=== PATIENT | male | born 1960 | race African-American/Black ===

== ENCOUNTER 2016-07-27 15:54 | Observation (INO) | payer OTHER ==
[~2016-07-27] VITALS: Ht 175.3 cm; Wt 80.2 kg
[~2016-07-27 15:54] MED LIST: ALPR0.5T3 PO; ASPI81 PO; ATOR80TA PO; CLOP75 PO; CORE12.5 PO; ISOS30TA3 PO; LISI-363 PO; NITR.4 SL; PRIL20CA PO; SPIR25 PO
[2016-07-27 15:55] VITALS: BP 164/101; PULSE 81; RESP 16; TEMP 98.2; O2SAT 98
[2016-07-27] MEDS ORDERED: ASPIRIN 325 MG TAB PO ONE (16:15)
[2016-07-27] MEDS ORDERED: SODIUM CHLORIDE 0.9% FLUSH 10 ML FLUSH IVF PRN ×2 (16:15→18:00)
[2016-07-27] MEDS ORDERED: NITROGLYCERIN 0.4 MG SL 25 TABS/BTL SL ONE (16:15)
--- NOTE | 2016-07-27 16:27 | RADRPT ---
EXAM DATE/TIME: 07/27/2016 16:17 [facility] COMPARISON: CHEST SINGLE AP, November 08, 2015, 3:09. INDICATIONS : Chest pain. MEDICAL HISTORY : Hypertension. Cardiovascular disease SURGICAL HISTORY : Pacemaker. ENCOUNTER: Initial ACUITY: 1 day PAIN SCORE: 10/10 LOCATION: Bilateral chest FINDINGS: A single view of the chest demonstrates the lungs to be symmetrically aerated without evidence of mas s, infiltrate or effusion. The cardiomediastinal contours are unremarkable. Osseous structures are intact. Single lead left-sided pacing device noted. Lead terminates in the region of the right ventri juve. CONCLUSION: No acute disease. Boogie Hall Jr., MD on July 27, 2016 at 16:25 Board Certified Radiologist. This report was verified electronically.
[2016-07-27 16:29] VITALS: BP 145/87; PULSE 70; RESP 18; O2SAT 97
[2016-07-27 16:31] VITALS: BP_SYST 145; BP_SYST 146; BP_DIAS 85; BP_DIAS 87; PULSE 72; RESP 18; RESP 20; O2SAT 99
--- NOTE | 2016-07-27 16:41 | PD ---
HPI Chief Complaint: Chest Pain Time Seen by Provider: 16:36 Travel History International Travel<30 days: No Contact w/Intl Traveler<30days: No Traveled to known affect area: No History of Present Illness HPI 56-year-old male that presents to the ED for evaluation of chest pain that comes and goes since this morning. Per patient he has a history of STEMI as well as stenting of the heart about a year ago. Patient also states that he had a history of cardiac arrest and was brought back to life. Patient reports that since this morning she woke up with some chest pain which she states comes and goes. Per patient starts as a small ache and then becomes more severe and then goes away. Per patient he feels somewhat like a burning sensation. He does tell me that he went on a casino bar and he did drink some alcohol more than his usual but denies any smoking. He denies any headache but does state feeling somewhat dizzy and lightheaded. He was seen about 3 times last year and had a STEMI and to non-STEMI during that time. Per patient she follows with Dr. Carbone. Per patient the discomfort gets to be 6 out of 10. Describes it more like a burning than a pressure or actual pain. Per patient he has no abdominal pain. No nausea or vomiting. No urinary or bowel movement issues. No fevers chills or sweats. No recent travel. He does have a history of hypertension, family history of heart disease, and takes anticoagulation. He also has a defibrillator but per patient the body was taken off because his doctor recommended that he did not need it anymore. PFSH Past Medical History Hx Anticoagulant Therapy: Yes (ASA) Asthma: No Autoimmune Disease: No Blood Disorders: No Heart Rhythm Problems: No Cancer: No Cardiac Catheterization: Yes Cardiovascular Problems: Yes (MIx2, STENTx1, PACEMAKER) High Cholesterol: Yes Chest Pain: Yes Congestive Heart Failure: No COPD: No Diabetes: No Diminished Hearing: No Endocrine: No Gastrointestinal Disorders: Yes (CUST COLON) Gout: Yes Genitourinary: No Hepatitis: No Heparin Induced Thrombocytopen: No Hypertension: Yes Immune Disorder: No Musculoskeletal: Yes Neurologic: No Psychiatric: No Respiratory: Yes Immunizations Current: Yes Myocardial Infarction: Yes (2011;2015) Sleep Apnea: No Thyroid Disease: No PNEUMOCCOCAL Vaccine (Year): 2 Past Surgical History Abdominal Surgery: Yes (Cyst removed ) AICD: Yes (July 2011) Arteriovenous Shunt: No Cardiac Surgery: Yes (AICD placed three years ago; STENT x1) Coronary Artery Bypass Graft: No Ear Surgery: No Endocrine Surgery: No Eye Surgery: No Genitourinary Surgery: No Gynecologic Surgery: No Insulin Pump: No Joint Replacement: No Neurologic Surgery: No Oral Surgery: No Pacemaker: No Thoracic Surgery: No Other Surgery: Yes (5 knee surguries, stomach cyst removed, wrist surgery) Family History Family Myocardial Infarction: No Social History Alcohol Use: Yes (TWO SHOTS/DAY) Tobacco Use: No Substance Use: No Allergies-Medications (Allergen,Severity, Reaction): Coded Allergies: Septra (Verified Allergy, Severe, "FEELS LIKE MY WHOLE BODY IS ON FIRE", ) Sulfa (Verified Allergy, Severe, "FEELS LIKE MY WHOLE BODY IS ON FIRE", ) Reported Meds & Prescriptions Reported Meds & Active Scripts Active Isosorbide Mononitrate Er (Isosorbide Mononitrate) 30 Mg Tab 60 Mg PO DAILY Plavix (Clopidogrel Bisulfate) 75 Mg Tab 75 Mg PO DAILY Aspirin Low Strength (Aspirin) 81 Mg Chw 81 Mg PO DAILY Prilosec 20 mg (Omeprazole) 20 Mg Cap 20 Mg PO DAILY Nitroglycerin 0.4 Mg Subl 0.4 Mg SL DIRECTED PRN take one tablet sublingually every 5 minutes as needed for up to 3 doses max Reported Atorvastatin 80 mg (Atorvastatin Calcium) 80 Mg Tab 80 Mg PO DAILY Lisinopril 20 mg (Lisinopril) 20 Mg Tab 1 Tab PO BID Alprazolam 0.5 Mg Tab 0.5 Mg PO BID PRN Aldactone 25 mg (Spironolactone) 25 Mg Tab 12.5 Mg PO DAILY Hold for SBP below 120 Coreg (Carvedilol) 12.5 Mg Tab 25 Mg PO BID Review of Systems General / Constitutional: No: Fever, Chills, Weight Gain, Weight Loss, Other Eyes: No: Diploplia, Blurred Vision, Photophobia, Drainage, Redness, Foreign Body Sensation, Pain, Tearing, Blind Spots, Visual changes, Blindness, Other HENT: No: Headaches, Vertigo, Lightheadedness, Sore Throat, Rhinitis, Rhinorrhea, Congestion, Nosebleed, Neck Stiffness, Neck Pain, Masses, Gingival Bleeding, Dental Difficulties, Ear Discharge, Earache, Other Cardiovascular: Positive: Chest Pain or Discomfort, Diaphoresis, No: Palpitations, Irregular Rhythm, Tachycardia, Syncope, Dyspnea on exertion, Varicosities, Edema, Cyanosis, Varicosities, Phlebitis, Claudication, Other Respiratory: Positive: Shortness of Breath, No: Cough, Wheezing, Sneezing, Orthopnea, Hemoptysis, Stridor, Night Sweats, Pleuritic Pain, Other Gastrointestinal: No: Nausea, Vomiting, Diarrhea, Abdominal Pain, Hematemesis, Hematochezia, Constipation, Changes in Bowel Habits, Indigestion, Dysphagia, Loss of Appetite, Other Genitourinary: No: Urgency, Frequency, Dysuria, Nocturia, Hematuria, Decreased Urinary Output, Oliguria, Hesitancy, Dribbling, Incontinence, Pelvic Pain, Flank Pain, Dyspareunia, Discharge, Dysmenorrhea, Menorrhagia, Metorrhagia, Vaginal Bleeding, Other Musculoskeletal: No: Myalgias, Arthralgias, Limited ROM, Weakness, Cramping, Edema, Pain, Atrophy, Other Skin: No Rash, No Itching, No Dryness, No Lumps, No Hives, No Change in Pigmentation, No Change in nails, No Alopecia, No Lesions, No Breast Lumps, No Breast Tenderness, No Breast Swelling, No Other Neurologic: No: Weakness, Dizziness, Syncope, Focal Abnormalities, Coordination Problem, Tremor, Ataxia, Headache, Change in Mentation, Slurred Speech, Paresthesia, Incontinence, Seizures, Sensory Disturbance, Other Psychiatric: No: Anxiety, Depression, Suicidal Ideations, Disorder of Thought, Mood Disorder, Substance Abuse, Homicidal Ideation, Other Endocrine: No: Heat Intolerance, Cold Intolerance, Polyuria, Polydipsia, Other Hematologic/Lymphatic: No: Easy Bruising, Lymph Node Enlargement, Other Physical Exam Narrative GENERAL: SKIN: Warm and dry. HEAD: Atraumatic. Normocephalic. EYES: Pupils equal and round. No scleral icterus. No injection or drainage. ENT: No nasal bleeding or discharge. Mucous membranes pink and moist. Tongue is midline. No uvula deviation. NECK: Trachea midline. No JVD. CARDIOVASCULAR: Regular rate and rhythm. No obvious murmurs, S3, S4. Chest pain is not reproducible with touch. RESPIRATORY: No accessory muscle use. Clear to auscultation. Breath sounds equal bilaterally. GASTROINTESTINAL: Abdomen soft, non-tender, nondistended. Hepatic and splenic margins not palpable. MUSCULOSKELETAL: Extremities without clubbing, cyanosis, or edema. No obvious deformities. Full range of motion of the upper and lower extremities bilaterally. 2+ pulses bilaterally. NEUROLOGICAL: Awake and alert. No obvious cranial nerve deficits. Motor grossly within normal limits. Five out of 5 muscle strength in the arms and legs. Normal speech. PSYCHIATRIC: Appropriate mood and affect; insight and judgment normal. Data Data Last Documented VS Vital Signs Date Time Temp Pulse Resp B/P Pulse Ox O2 Delivery O2 Flow Rate FiO2 07/27/16 17:48 18 07/27/16 16:31 72 99 Room Air 07/27/16 16:31 145/87 146/85 07/27/16 15:55 98.2 Orders Electrocardiogram (07/27/16 16:08) Basic Metabolic Panel (Bmp) (07/27/16 16:08) B-Type Natriuretic Peptide (07/27/16 16:08) Ckmb (Isoenzyme) Profile (07/27/16 16:08) Complete Blood Count With Diff (07/27/16 16:08) Magnesium (Mg) (07/27/16 16:08) Prothrombin Time / Inr (Pt) (07/27/16 16:08) Act Partial Throm Time (Ptt) (07/27/16 16:08) Troponin I (07/27/16 16:08) Lipase (07/27/16 16:08) Chest, Single Ap (07/27/16 16:08) Ecg Monitoring (07/27/16 16:08) Bilateral Bp Monitoring (07/27/16 16:08) Iv Access Insert/Monitor (07/27/16 16:08) Oximetry (07/27/16 16:08) Oxygen Administration (07/27/16 16:08) Aspirin (Aspirin) (07/27/16 16:15) Sodium Chloride 0.9% Flush (Ns Flush) (07/27/16 16:15) Nitroglycerin Sl (Nitrostat Sl) (07/27/16 16:15) CKMB (07/27/16 16:30) CKMB% (07/27/16 16:30) Admit Order (Ed Use Only) (07/27/16 17:51) Labs Laboratory Tests Test 07/27/16 16:30 White Blood Count 7.0 TH/MM3 Red Blood Count 3.67 MIL/MM3 Hemoglobin 12.6 GM/DL Hematocrit 36.6 % Mean Corpuscular Volume 99.9 FL Mean Corpuscular Hemoglobin 34.4 PG Mean Corpuscular Hemoglobin 34.5 % Concent Red Cell Distribution Width 14.9 % Platelet Count 214 TH/MM3 Mean Platelet Volume 9.5 FL Neutrophils (%) (Auto) 38.8 % Lymphocytes (%) (Auto) 46.5 % Monocytes (%) (Auto) 7.4 % Eosinophils (%) (Auto) 6.4 % Basophils (%) (Auto) 0.9 % Neutrophils # (Auto) 2.7 TH/MM3 Lymphocytes # (Auto) 3.3 TH/MM3 Monocytes # (Auto) 0.5 TH/MM3 Eosinophils # (Auto) 0.4 TH/MM3 Basophils # (Auto) 0.1 TH/MM3 CBC Comment DIFF FINAL Differential Comment Prothrombin Time 9.7 SEC Prothromb Time International 0.9 RATIO Ratio Activated Partial 27.3 SEC Thromboplast Time Sodium Level 140 MEQ/L Potassium Level 3.6 MEQ/L Chloride Level 106 MEQ/L Carbon Dioxide Level 26.2 MEQ/L Anion Gap 8 MEQ/L Blood Urea Nitrogen 17 MG/DL Creatinine 1.12 MG/DL Estimat Glomerular Filtration 82 ML/MIN Rate Random Glucose 99 MG/DL Calcium Level 8.8 MG/DL Magnesium Level 1.9 MG/DL Total Creatine Kinase 224 U/L Creatine Kinase MB 1.1 NG/ML Troponin I 0.02 NG/ML B-Type Natriuretic Peptide 13 PG/ML Lipase 201 U/L MDM Medical Decision Making Medical Screen Exam Complete: Yes Emergency Medical Condition: Yes Medical Record Reviewed: Yes Interpretation(s) CBC & BMP Diagram 07/27/16 16:30 EKG shows sinus rhythm with no sign of acute ischemia or arrhythmia read by me and attending. Troponin and CK-MB negative. Lipase negative Differential Diagnosis Chest pain versus a typical chest pain versus an STEMI versus ACS versus GERD versus cardiomyopathy Narrative Course 56-year-old male that presents to the ED for evaluation of chest pain. Patient was properly examined and was found to have signs and symptoms consistent appears to be chest pain." You're this time. Patient states that the symptoms are similar to when he had the stent put in place and he does have a significant history of heart disease. Recommendation is for cardiac workup. Patient is agreeable with this. Patient was given nitroglycerin and aspirin. Labs and imaging showed no sign of acute at this time. Patient did get resolution of symptoms with nitroglycerin and aspirin. Case discussed with my attending who recommends speaking with patient's business systems technician. I spoke with Dr. Carbone over the phone who recommends admission to chest pain center for chest pain workup. Patient was told this and is agreeable with plan. Patient was admitted to the chest pain center. Orders were placed by me. Procedures EKG Prior to Arrival: No Diagnosis Primary Impression: Chest pain in adult Admitting Information Admitting Physician Requests: Observation He Gill Jul 27, 2016 16:41
[2016-07-27 17:11] LABS: AUTOMATED NEUTROPHIL # 2.7 TH/MM3 (1.8-7.7); BASOPHIL # 0.1 TH/MM3 (0-0.2); BASOPHIL % 0.9 % (0.0-2.0); EOSINOPHIL # 0.4 TH/MM3 (0-0.4); EOSINOPHIL % 6.4 % (0.0-4.0); HEMATOCRIT 36.6 % (39.0-51.0); HEMO FLAGS DIFF FINAL; LYMPH % 46.5 % (9.0-44.0); LYMPHOCYTE # 3.3 TH/MM3 (1.0-4.8); MEAN CELL VOLUME 99.9 FL (80.0-100.0); MEAN CORPUSCULAR HEMOGLOBIN 34.4 PG (27.0-34.0); MEAN CORPUSCULAR HGB CONC 34.5 % (32.0-36.0); MONO % 7.4 % (0.0-8.0); NEUT % 38.8 % (16.0-70.0); PLATELET COUNT 214 TH/MM3 (150-450); RED BLOOD COUNT 3.67 MIL/MM3 (4.50-5.90); RED CELL DISTRIBUTION WIDTH 14.9 % (11.6-17.2)
[2016-07-27 17:24] LABS: APTT (PATIENT) 27.3 SEC (24.3-30.1); INTERNATIONAL NORMALIZED RATIO 0.9 RATIO; PROTHROMBIN TIME - PATIENT 9.7 SEC (9.8-11.6)
[2016-07-27 17:32] LABS: ANION GAP 8 MEQ/L (5-15); BICARBONATE 26.2 MEQ/L (21.0-32.0); BLOOD UREA NITROGEN 17 MG/DL (7-18); CHLORIDE 106 MEQ/L (98-107); GLOMERULAR FILTRATION RATE 82 ML/MIN (>89); MAGNESIUM 1.9 MG/DL (1.5-2.5); POTASSIUM 3.6 MEQ/L (3.5-5.1); SODIUM (NA) 140 MEQ/L (136-145)
[2016-07-27 17:35] LABS: CREATINE KINASE 224 U/L (39-308)
[2016-07-27 17:48] LABS: CKMB 1.1 NG/ML (0.5-3.6)
[2016-07-27] MEDS ORDERED: ACETAMINOPHEN 500 MG CPLT PO PRN (18:00)
[2016-07-27] MEDS ORDERED: ONDANSETRON HCL 4 MG/2 ML VIAL IV PRN (18:00)
[2016-07-27 18:29] VITALS: BP 142/76; PULSE 72; RESP 18; O2SAT 98
[2016-07-27 18:41] VITALS: BP 136/72
[2016-07-27] MEDS ORDERED: LISI-515 PO (19:22)
[2016-07-27] MEDS ORDERED: NITR0.4S SL (19:22)
[2016-07-27] MEDS ORDERED: ALPR.5 PO (19:22)
[2016-07-27] MEDS ORDERED: OMEP20TA PO (19:22)
[2016-07-27] MEDS ORDERED: CORE25TA PO (19:22)
[2016-07-27] MEDS ORDERED: ASPI1TAB91 PO (19:22)
[2016-07-27] MEDS ORDERED: PLAV75TA29 PO (19:22)
[2016-07-27] MEDS ORDERED: ISOS60TA PO (19:22)
[2016-07-27] MEDS ORDERED: LIPI80TA PO (19:22)
[2016-07-27] MEDS ORDERED: SPIR25TA PO (19:22)
[2016-07-27 21:33] VITALS: PULSE 76
[2016-07-28] VITALS (14 sets, daily range): BP systolic 125–155; BP diastolic 77–94; PULSE 64–86; RESP 14–20; TEMP 97.6–98.8; O2SAT 94–99
[2016-07-28 01:27] LABS: CREATINE KINASE 172 U/L (39-308)
[2016-07-28 01:39] LABS: CKMB 1.1 NG/ML (0.5-3.6)
[2016-07-28 04:01] LABS: CREATINE KINASE 188 U/L (39-308)
[2016-07-28 04:13] LABS: CKMB 3.2 NG/ML (0.5-3.6)
[2016-07-28] MEDS ORDERED: ALPRAZolam 0.5 MG TAB PO PRN (07:45)
--- NOTE | 2016-07-28 07:45 | PD.CONS ---
HPI Service CV Consult Requested By Reason for Consult chest pain Primary Care Physician Carlos Cabezas M.D. History of Present Illness Here with CAD s/p PCI FLORY LAD 10/2015, h/o cardiac arrest, HTN, nonischemic cardiomyopathy s/p ICD and hyperlipidemia admitted for chest pain. He states yesterday morning he woke with chest pain. He states it waxed and waned all day. It lasted 4 or 5 minutes at a time. It did not radiate. It was associated with shortness of breath. He states it was similar to the chest pain he has prior to his stent Review of Systems Consitutional: DENIES: Fatigue, Fever, Chills, Weight gain, Weight loss Eyes: DENIES: Amaurosis F[place], Change in vision HEENT: DENIES: Lightheadedness, Change in hearing Respiratory: DENIES: See HPI, Cough, Snoring, Shortness of breath, Wheezing, Sputum production Cardiovascular: COMPLAINS OF: See HPI Gastrointestinal: DENIES: Nausea, Vomiting, Change in bowel habits, Reflux, Bloody stools, Melena Genitourinary: DENIES: Urinary incontinence, Difficulty voiding Integumentary: DENIES: Rash Neurologic: DENIES: Tingling or numbness, Memory problems, Poor Balance, Stroke symptoms Musculoskeletal: DENIES: Joint pain, Muscle pain, Limited range of motion, Back pain Psychiatric: DENIES: Anxiety, Depression, Sleep disturbances Hematologic: DENIES: Bruising tendencies, Bleeding tendencies Endocrine: DENIES: Weight gain, Weight loss, Thyroid disease Past Family Social History Allergies: Coded Allergies: Septra (Verified Allergy, Severe, "FEELS LIKE MY WHOLE BODY IS ON FIRE", ) Sulfa (Verified Allergy, Severe, "FEELS LIKE MY WHOLE BODY IS ON FIRE", ) Past Medical History see HPI Past Surgical History bowel resection knee surgery Reported Medications Reported Meds & Active Scripts Active Reported Spironolactone 25 Mg Tab 12.5 Mg PO DAILY Omeprazole 20 Mg Tab 20 Mg PO DAILY Nitrostat SL (Nitroglycerin) 0.4 Mg Subl 0.4 Mg SL DIRECTED PRN 1 tablet under the tongue as needed for chest pain. Repeat every 5 minutes for a total of 3 DOSES or call 911 if NO relief. Lisinopril 20 Mg Tab 20 Mg PO BID Isosorbide Mononitrate ER (Isosorbide Mononitrate) 60 Mg Tab 60 Mg PO DAILY Plavix (Clopidogrel Bisulfate) 75 Mg Tab 75 Mg PO DAILY Coreg (Carvedilol) 25 Mg Tab 25 Mg PO BID Lipitor (Atorvastatin Calcium) 80 Mg Tab 80 Mg PO HS Xanax (Alprazolam) 0.5 Mg Tab 0.5 Mg PO BID PRN Aspirin Adult Low Strength (Aspirin) 81 Mg Tabdr 81 Mg PO DAILY Active Ordered Medications Current Medications Medications (Trade) Dose Ordered Sig/Aniya Route Start Time Stop Time Status Last Admin (NS Flush) 2 ml UNSCH PRN IVF 07/27/16 16:15 (NS Flush) 2 ml UNSCH PRN IVF 07/27/16 18:00 (Tylenol) 500 mg Q4H PRN PO 07/27/16 18:00 (Zofran Inj) 4 mg Q6H PRN IV 07/27/16 18:00 Family History noncontributory Social History denies smoking, occasional alcohol, denies substance abuse Physical Exam Vital Signs Vital Signs Date Time Temp Pulse Resp B/P Pulse Ox O2 Delivery O2 Flow Rate FiO2 07/28/16 05:07 78 07/28/16 04:21 97.6 72 20 155/94 98 07/28/16 00:32 97.9 80 20 126/80 99 07/28/16 00:29 99 07/27/16 21:33 76 07/27/16 18:41 74 18 136/72 99 07/27/16 18:29 72 18 142/76 98 Room Air 07/27/16 17:48 18 07/27/16 16:31 72 20 99 Room Air 07/27/16 16:31 72 18 145/87 99 Room Air 146/85 07/27/16 16:31 99 Room Air 07/27/16 16:29 70 18 145/87 97 Room Air 07/27/16 15:55 98.2 81 16 164/101 98 Physical Exam GENERAL: Well-nourished, well-developed patient in no apparent distress. NECK: No JVD. No carotid bruit. CARDIOVASCULAR: Regular rate and rhythm. S1/S2 no murmur, rub, or gallop. RESPIRATORY: No accessory muscle use. Clear to auscultation. Breath sounds equal bilaterally. GASTROINTESTINAL: Abdomen soft, non-tender, nondistended. MUSCULOSKELETAL: Extremities without clubbing, cyanosis, or edema. Laboratory Laboratory Tests Test 07/27/16 07/28/16 07/28/16 16:30 00:13 03:21 White Blood Count 7.0 Red Blood Count 3.67 Hemoglobin 12.6 Hematocrit 36.6 Mean Corpuscular Volume 99.9 Mean Corpuscular Hemoglobin 34.4 Mean Corpuscular Hemoglobin 34.5 Concent Red Cell Distribution Width 14.9 Platelet Count 214 Mean Platelet Volume 9.5 Neutrophils (%) (Auto) 38.8 Lymphocytes (%) (Auto) 46.5 Monocytes (%) (Auto) 7.4 Eosinophils (%) (Auto) 6.4 Basophils (%) (Auto) 0.9 Neutrophils # (Auto) 2.7 Lymphocytes # (Auto) 3.3 Monocytes # (Auto) 0.5 Eosinophils # (Auto) 0.4 Basophils # (Auto) 0.1 CBC Comment DIFF FINAL Differential Comment Prothrombin Time 9.7 Prothromb Time International 0.9 Ratio Activated Partial 27.3 Thromboplast Time Sodium Level 140 Potassium Level 3.6 Chloride Level 106 Carbon Dioxide Level 26.2 Anion Gap 8 Blood Urea Nitrogen 17 Creatinine 1.12 Estimat Glomerular Filtration 82 Rate Random Glucose 99 Calcium Level 8.8 Magnesium Level 1.9 Total Creatine Kinase 224 172 188 Creatine Kinase MB 1.1 1.1 3.2 Troponin I 0.02 0.04 0.26 B-Type Natriuretic Peptide 13 Lipase 201 Result Diagram: 07/27/16 1630 07/27/16 1630 Assessment and Plan Problem List: (1) Troponin level elevated (2) HTN (hypertension) (3) CAD (coronary artery disease) Assessment and Plan With his significant h/o of cardiac disease, some typical feature of angina and slight elevation in troponin we will proceed with left heart cath We restarted his home cardiac medications Jeremy Frank Jul 28, 2016 07:45
[2016-07-28] MEDS: LISINOPRIL 20 MG TAB PO SCH ×2 (08:03→20:08)
[2016-07-28] MEDS: CLOPIDOGREL 75 MG TAB PO SCH (08:04)
[2016-07-28] MEDS: SPIRONOLACTONE 25 MG TAB PO SCH (08:04)
[2016-07-28] MEDS: CARVEDILOL 12.5 MG TAB PO SCH ×2 (08:04→20:08)
[2016-07-28] MEDS: ATORVASTATIN 80 MG TAB PO SCH (08:04)
[2016-07-28] MEDS: ASPIRIN 81 MG CHEW TAB CHEW SCH (08:04)
[2016-07-28] MEDS ORDERED: HEPARIN SODIUM - SQ 10,000 UNITS/ML VIAL SQ ONE (09:45)
[2016-07-28] MEDS ORDERED: HEPARIN-NS/PF INJ 500 ML ONE (12:17)
[2016-07-28] MEDS ORDERED: MIDAZOLAM HCL 2 MG/2 ML VIAL ONE (12:30)
[2016-07-28] MEDS ORDERED: HEPARIN SODIUM - IV 10,000 UNITS/10 ML VIAL ONE (12:38)
[2016-07-28] MEDS ORDERED: LIDOCAINE 2% JELLY 30 ML TUBE TOP PRN (13:15)
[2016-07-28] MEDS ORDERED: ACETAMINOPHEN 325 MG TAB PO PRN (13:15)
[2016-07-28] MEDS ORDERED: MISC INFORMATION XX ONE (13:15)
[2016-07-28] MEDS ORDERED: ONDANSETRON HCL 4 MG/2 ML VIAL IV PRN (13:15)
[2016-07-28] MEDS ORDERED: ATROPINE SULFATE 1 MG/ML VIAL IV PRN (13:15)
[2016-07-28] MEDS ORDERED: SODIUM CHLOR 0.9% 250 ML INJ 250 ML IV PRN (13:15)
[2016-07-28] MEDS ORDERED: SODIUM CHLORIDE 0.9% FLUSH 10 ML FLUSH IV FLUSH PRN (13:15)
[2016-07-28] MEDS ORDERED: TEMAZEPAM 15 MG CAP PO PRN (13:15)
[2016-07-28] MEDS ORDERED: METOCLOPRAMIDE HCL 10 MG/2 ML VIAL IV PRN (13:15)
--- NOTE | 2016-07-28 13:29 | MA ---
cc: PALMIRA REYNOSO MD DATE 07/28/2016 PROCEDURE PERFORMED Catheterization PROCEDURE The patient was prepped and draped in the usual fashion. A 6 sheath was inserted percutaneously into the right femoral artery. Coronary angiography was done with [facility] preformed catheters. RESULTS Left main coronary was normal. The left anterior descending artery demonstrated 75-80% stenosis in its proximal portion. Just distal to the stenosis, an intraluminal stent was present which was widely patent and the remainder of the LAD demonstrates some very mild luminal irregularities, but no other significant stenoses were noted. The left circumflex artery demonstrated a 40-50% stenosis in its proximal portion. The artery then descended in the AV groove and gave off two obtuse marginal branches which were widely patent. The distal portion of the circumflex was very small. A subtotal stenosis was present in the midportion of that artery. This artery, however very small in diameter with an estimated diameter of 1 mm or less. The right coronary was anatomically nondominant and very small. No significant stenoses were seen. It was felt that the LAD lesion was likely the culprit lesion for the patient's symptoms. An XB 3.5 guide was used after heparin administration. A [place] wire was then maneuvered into the LAD and primary stenting was accomplished with a Synergy stent which was 3.5 x 12 mm with post dilatation to 14 atmospheres. This resulted in a good cosmetic result was zero residual. ARLEN-III flow was present pre and post procedure. The equipment was then withdrawn. The sheath was sutured into place. The patient left lab in good condition. CONCLUSION Successful PTCA and stenting of proximal LAD. MD BRAD Correa/[place] /1:13 PM /1:22 PM
[2016-07-28] MEDS ORDERED: IOHEXOL 350 MG/ML 100 ML BTL (for Cath Lab) OTHER ONE (13:58)
[2016-07-28] MEDS ORDERED: IOHEXOL 350 MG/ML 50 ML BTL (for Cath Lab) OTHER ONE (13:58)
--- NOTE | 2016-07-28 14:27 | EKG ---
Date Performed: 07/28/2016 Time Performed: 07:55:30 PTAGE: 56 years EKG: Sinus rhythm NORMAL ECG Since PREVIOUS TRACING , no significant change noted PREVIOUS TRACIN07/28/2016 05.11 DOCTOR: Robyn Spears Interpretating Date/Time 07/28/2016 14:25:20
--- NOTE | 2016-07-28 14:27 | EKG ---
Date Performed: 07/28/2016 Time Performed: 09:36:50 PTAGE: 56 years EKG: Sinus rhythm SEPTAL MYOCARDIAL INFARCTION ABNORMAL ECG Since PREVIOUS TRACING , no significant change noted PREVIOUS TRACIN07/28/2016 07.55 DOCTOR: Robyn Spears Interpretating Date/Time 07/28/2016 14:25:48
--- NOTE | 2016-07-28 14:28 | EKG ---
Date Performed: 07/28/2016 Time Performed: 05:11:37 PTAGE: 56 years EKG: Sinus rhythm SEPTAL MYOCARDIAL INFARCTION ABNORMAL ECG Since PREVIOUS TRACING , no significant change noted PREVIOUS TRACIN07/27/2016 22.29 DOCTOR: Robyn Spears Interpretating Date/Time 07/28/2016 14:26:10
--- NOTE | 2016-07-28 14:30 | EKG ---
Date Performed: 07/27/2016 Time Performed: 22:29:26 PTAGE: 56 years EKG: Sinus rhythm WITH SINUS ARRHYTHMIA SEPTAL MYOCARDIAL INFARCTION ABNORMAL ECG Since PREVIOUS TRACING , no significant change noted PREVIOUS TRACIN07/27/2016 20.29 DOCTOR: Robyn Spears Interpretating Date/Time 07/28/2016 14:28:09
--- NOTE | 2016-07-28 14:31 | EKG ---
Date Performed: 07/27/2016 Time Performed: 16:10:57 PTAGE: 56 years EKG: Sinus rhythm SEPTAL MYOCARDIAL INFARCTION ABNORMAL ECG Since PREVIOUS TRACING , no significant change noted PREVIOUS TRACIN11/08/2015 07.49 DOCTOR: Robyn Spears Interpretating Date/Time 07/28/2016 14:29:58
--- NOTE | 2016-07-28 14:34 | EKG ---
Date Performed: 07/27/2016 Time Performed: 20:29:28 PTAGE: 56 years EKG: Sinus rhythm SEPTAL MYOCARDIAL INFARCTION ABNORMAL ECG Since PREVIOUS TRACING , no significant change noted PREVIOUS TRACIN07/27/2016 16.10 DOCTOR: Robyn Spears Interpretating Date/Time 07/28/2016 14:34:24
[2016-07-28] MEDS: NITROGLYCERIN 2% OINT 1 GM PACKET TOPICAL SCH (18:00)
[2016-07-28] MEDS ORDERED: SODIUM CHLORIDE 0.9% FLUSH 10 ML FLUSH IV FLUSH SCH (21:00)
[2016-07-29] VITALS (9 sets, daily range): BP systolic 100–119; BP diastolic 63–86; PULSE 70–91; RESP 18–20; TEMP 98.5–98.7; O2SAT 97–100
[2016-07-29] MEDS: NITROGLYCERIN 2% OINT 1 GM PACKET TOPICAL SCH ×2 (00:58→05:19)
[2016-07-29 06:56] LABS: HDL CHOLESTEROL 26.1 MG/DL (40.0-60.0)
[2016-07-29 07:06] LABS: AUTOMATED NEUTROPHIL # 3.1 TH/MM3 (1.8-7.7); BASOPHIL % 0.7 % (0.0-2.0); EOSINOPHIL # 0.4 TH/MM3 (0-0.4); EOSINOPHIL % 5.4 % (0.0-4.0); HEMATOCRIT 34.7 % (39.0-51.0); HEMO FLAGS DIFF FINAL; LYMPH % 42.3 % (9.0-44.0); LYMPHOCYTE # 2.8 TH/MM3 (1.0-4.8); MEAN CELL VOLUME 101.2 FL (80.0-100.0); MEAN CORPUSCULAR HEMOGLOBIN 35.9 PG (27.0-34.0); MEAN CORPUSCULAR HGB CONC 35.5 % (32.0-36.0); MONO % 5.8 % (0.0-8.0); NEUT % 45.8 % (16.0-70.0); PLATELET COUNT 208 TH/MM3 (150-450); RED BLOOD COUNT 3.43 MIL/MM3 (4.50-5.90); RED CELL DISTRIBUTION WIDTH 14.9 % (11.6-17.2); WHITE BLOOD COUNT 6.7 TH/MM3 (4.0-11.0)
[2016-07-29 07:14] LABS: BICARBONATE 24.6 MEQ/L (21.0-32.0); POTASSIUM 3.4 MEQ/L (3.5-5.1)
--- NOTE | 2016-07-29 07:51 | HHI.DS ---
Discharge Summary Admission Date Jul 27, 2016 at 17:53 Admitting Diagnosis chest pain, r/o ACS (1) CAD (coronary artery disease) Diagnosis: Principal Procedures coronary angiogram Brief History He present to ER with unstable angina. He had previous PCI in 2016. Cardiac workup revealed a troponin bump and with his anginal symptoms it was decide to proceed with left heart cath CBC/BMP: 07/29/16 0444 07/29/16 0444 Significant Findings Laboratory Tests Test 07/27/16 07/28/16 07/29/16 16:30 03:21 04:44 Red Blood Count 3.67 MIL/MM3 3.43 MIL/MM3 (4.50-5.90) (4.50-5.90) Hemoglobin 12.6 GM/DL 12.3 GM/DL (13.0-17.0) (13.0-17.0) Hematocrit 36.6 % 34.7 % (39.0-51.0) (39.0-51.0) Mean Corpuscular Hemoglobin 34.4 PG 35.9 PG (27.0-34.0) (27.0-34.0) Lymphocytes (%) (Auto) 46.5 % (9.0-44.0) Eosinophils (%) (Auto) 6.4 % (0.0-4.0) 5.4 % (0.0-4.0) Prothrombin Time 9.7 SEC (9.8-11.6) Estimat Glomerular Filtration 82 ML/MIN (>89) 78 ML/MIN (>89) Rate Troponin I 0.26 NG/ML (0.02-0.05) Mean Corpuscular Volume 101.2 FL (80.0-100.0) Potassium Level 3.4 MEQ/L (3.5-5.1) Random Glucose 169 MG/DL (74-106) Calcium Level 8.1 MG/DL (8.5-10.1) Triglycerides Level 1242 MG/DL (42-150) HDL Cholesterol 26.1 MG/DL (40.0-60.0) PE at Discharge GENERAL: Well-nourished, well-developed patient in no apparent distress. NECK: No JVD. No carotid bruit. CARDIOVASCULAR: Regular rate and rhythm. S1/S2 no murmur, rub, or gallop. RESPIRATORY: No accessory muscle use. Clear to auscultation. Breath sounds equal bilaterally. GASTROINTESTINAL: Abdomen soft, non-tender, nondistended. MUSCULOSKELETAL: Extremities without clubbing, cyanosis, or edema. right femoral pulse 2+, right groin c/d/i Hospital Course Coronary angiogram revealed significant 75-80% proximal stenosis LAD and primary stenting was completed with a drug eluting stent Pt Condition on Discharge: Good Discharge Disposition: Discharge Home Discharge Instructions DIET: Follow Instructions for: Heart Healthy Diet Activities you can perform: See Additionl Instruction Other Activity Instructions: rest today and back to normal activities tomorrow Jeremy Frank Jul 29, 2016 07:51
[2016-07-29] MEDS: ATORVASTATIN 80 MG TAB PO SCH (08:57)
[2016-07-29] MEDS: LISINOPRIL 20 MG TAB PO SCH (08:57)
[2016-07-29] MEDS: SPIRONOLACTONE 25 MG TAB PO SCH (08:57)
[2016-07-29] MEDS: CARVEDILOL 12.5 MG TAB PO SCH (08:57)
[2016-07-29] MEDS: ASPIRIN 81 MG CHEW TAB CHEW SCH (08:57)
[2016-07-29] MEDS: CLOPIDOGREL 75 MG TAB PO SCH (08:58)
[2016-07-29] MEDS ORDERED: ASPIRIN 81 MG CHEW TAB PO SCH (09:00)
[2016-07-29] MEDS ORDERED: CLOPIDOGREL 75 MG TAB PO SCH (09:00)
== END 2016-07-29 09:37 | disposition home or self-care (01) ==
LOC: NEPE 15:54 → NEDA 17:53 → NEPFCDU 18:49 → NEDA 22:20 → HCIS 07-28 13:36
PROVIDERS: ADMIT Internal Medicine Cardiovascular Disease; ATTEND Internal Medicine Cardiovascular Disease
DX: R07.9 Chest pain, unspecified (principal); I25.2 Old myocardial infarction; Z86.74 Personal history of sudden cardiac arrest; R42 Dizziness and giddiness; I21.4 Non-ST elevation (NSTEMI) myocardial infarction; Z82.49 Family history of ischemic heart disease and other diseases of the circulatory system; I10 Essential (primary) hypertension; Z79.01 Long term (current) use of anticoagulants; E78.00 Pure hypercholesterolemia, unspecified; Z79.899 Other long term (current) drug therapy; Z98.61 Coronary angioplasty status; Z95.810 Presence of automatic (implantable) cardiac defibrillator; I25.110 Atherosclerotic heart disease of native coronary artery with unstable angina pectoris; E78.5 Hyperlipidemia, unspecified; R94.31 Abnormal electrocardiogram [ECG] [EKG]
CPT/HCPCS: 71010; 80048; 80061; 82550; 82552; 83690; 83735; 83880; 84484; 85002; 85025; 85347; 85610; 85730; 92928; 93005; 93454; 99285; C1769; C1874; C1887; C1893; G0378; J1644; J2250; Q9967

== ENCOUNTER 2016-08-24 05:07 | Inpatient (IN) | payer OTHER ==
[2016-08-24] VITALS (11 sets, daily range): BP systolic 122–191; BP diastolic 55–96; PULSE 59–81; RESP 16–18; TEMP 97.6–98.3; O2SAT 95–99
[~2016-08-24] VITALS: Ht 175.3 cm; Wt 83.1 kg
[~2016-08-24 05:07] MED LIST changes: +ALPR.5 PO; -ALPR0.5T3 PO; +ASPI1TAB91 PO; -ASPI81 PO; -ATOR80TA PO; -CLOP75 PO; -CORE12.5 PO; +CORE25TA PO; -ISOS30TA3 PO; +ISOS60TA PO; +LIPI80TA PO; -LISI-363 PO; +LISI-515 PO; -NITR.4 SL; +NITR0.4S SL; +PLAV75TA29 PO; -PRIL20CA PO; -SPIR25 PO; +SPIR25TA PO
[2016-08-24] MEDS ORDERED: NITROGLYCERIN 2% OINT 1 GM PACKET TOP ONE (05:30)
[2016-08-24] MEDS ORDERED: SODIUM CHLORIDE 0.9% FLUSH 10 ML FLUSH IVF PRN (05:30)
[2016-08-24] MEDS: NITROGLYCERIN 0.4 MG SL 25 TABS/BTL SL SCH ×3 (05:35→06:11)
[2016-08-24 05:38] LABS: AUTOMATED NEUTROPHIL # 3.2 TH/MM3 (1.8-7.7); BASOPHIL % 0.3 % (0.0-2.0); EOSINOPHIL # 0.5 TH/MM3 (0-0.4); EOSINOPHIL % 6.4 % (0.0-4.0); HEMATOCRIT 36.8 % (39.0-51.0); HEMO FLAGS DIFF FINAL; LYMPH % 42.1 % (9.0-44.0); LYMPHOCYTE # 3.1 TH/MM3 (1.0-4.8); MEAN CELL VOLUME 100.5 FL (80.0-100.0); MEAN CORPUSCULAR HEMOGLOBIN 34.5 PG (27.0-34.0); MEAN CORPUSCULAR HGB CONC 34.4 % (32.0-36.0); NEUT % 43.2 % (16.0-70.0); PLATELET COUNT 217 TH/MM3 (150-450); RED BLOOD COUNT 3.67 MIL/MM3 (4.50-5.90); RED CELL DISTRIBUTION WIDTH 14.3 % (11.6-17.2); WHITE BLOOD COUNT 7.3 TH/MM3 (4.0-11.0)
[2016-08-24 05:50] LABS: APTT (PATIENT) 25.2 SEC (24.3-30.1); INTERNATIONAL NORMALIZED RATIO 0.9 RATIO; PROTHROMBIN TIME - PATIENT 10.2 SEC (9.8-11.6)
--- NOTE | 2016-08-24 06:02 | RADRPT ---
EXAM DATE/TIME: 08/24/2016 05:39 [facility] COMPARISON: CHEST SINGLE AP, July 27, 2016, 16:17. INDICATIONS : Chest pain. MEDICAL HISTORY : Hypertension. Cardiovascular disease. SURGICAL HISTORY : Coronary artery stent. Pacemaker. ENCOUNTER: Initial ACUITY: 1 day PAIN SCORE: 4/10 LOCATION: chest substernal. FINDINGS: A single view of the chest demonstrates the lungs to be symmetrically aerated without evidence of mas s, infiltrate or effusion. The cardiomediastinal contours are unremarkable. Osseous structures are intact. Pacemaker over left side of chest. CONCLUSION: No acute disease. No significant change has occurred. Raymond Berry MD on August 24, 2016 at 6:00 Board Certified Radiologist. This report was verified electronically.
[2016-08-24 06:17] LABS: ALKALINE PHOSPHATASE 66 U/L (45-117); ALT (GPT) 39 U/L (12-78); ANION GAP 8 MEQ/L (5-15); AST (GOT) 35 U/L (15-37); BICARBONATE 24.8 MEQ/L (21.0-32.0); BLOOD UREA NITROGEN 11 MG/DL (7-18); CHLORIDE 107 MEQ/L (98-107); CREATINE KINASE 281 U/L (39-308); GLOMERULAR FILTRATION RATE 67 ML/MIN (>89); MAGNESIUM 1.8 MG/DL (1.5-2.5); SODIUM (NA) 140 MEQ/L (136-145)
[2016-08-24 06:18] LABS: POTASSIUM 4.4 MEQ/L (3.5-5.1)
[2016-08-24 06:31] LABS: CKMB 2.2 NG/ML (0.5-3.6)
--- NOTE | 2016-08-24 06:57 | PD ---
HPI Chief Complaint: Chest Pain Time Seen by Provider: 05:25 Travel History International Travel<30 days: No Contact w/Intl Traveler<30days: No Traveled to known affect area: No History of Present Illness HPI The patient is a 56-year-old male who presents to the [facility] emergency department with a history of chest pain that he reports began sometime in the evening. He reports that it causes him to have difficulty sleeping. The patient reports that he is not exactly sure when the onset was, however around 3 :30 AM it became worse he drove himself to the emergency department. He reports that it resolves on his arrival in the parking lot and he attempted to go back home, however it again recurred. The patient reports having history of coronary artery disease. He reports that he last had a stent placed a month ago. She also has a history of sudden cardiac with defibrillator placement, however he reports that the defibrillator is not functional. The patient reports the pain is substernal and a pressure sensation that comes and goes. He denies having any shortness of breath, diaphoresis, radiation of pain , or nausea associated with this. He reports that he does have a history of acid reflux, however when he had his first myocardial infarction he had acid reflux as the only symptom. The patient denies any recent fevers, cough, congestion, abdominal pain, vomiting, diarrhea, urinary symptoms, or neurologic symptoms. [facility] Past Medical History Narrative Medical The patient's past medical history is significant for coronary artery disease, history of a cardiomyopathy, history of sudden cardiac 5 years ago, history of hyperlipidemia, acid reflux, most recent cardiac catheterization was done on July 28, 2016 revealed a left anterior descending artery that showed 75 -80% stenosis in its proximal portion. At that time angioplasty was accomplished and a stent was placed. Hx Anticoagulant Therapy: Yes Asthma: No Autoimmune Disease: No Blood Disorders: No Heart Rhythm Problems: No Cancer: No Cardiac Catheterization: Yes Cardiovascular Problems: Yes High Cholesterol: Yes Chest Pain: Yes Congestive Heart Failure: No COPD: No Diabetes: No Diminished Hearing: No Endocrine: No Gastrointestinal Disorders: Yes (CUST COLON) Gout: Yes Genitourinary: No Hepatitis: No Heparin Induced Thrombocytopen: No Hypertension: Yes Immune Disorder: No Musculoskeletal: Yes Neurologic: No Psychiatric: No Respiratory: Yes Immunizations Current: Yes Myocardial Infarction: Yes (2011;2015) Sleep Apnea: No Thyroid Disease: No PNEUMOCCOCAL Vaccine (Year): 2 Past Surgical History Narrative Surgical The patient's past surgical history is significant for a defibrillator placement , cardiac catheterization with stent placement, 5 prior knee surgeries. Abdominal Surgery: Yes (Cyst removed ) AICD: Yes (July 2011) Arteriovenous Shunt: No Cardiac Surgery: Yes (AICD placed three years ago; STENT x1) Coronary Artery Bypass Graft: No Ear Surgery: No Endocrine Surgery: No Eye Surgery: No Genitourinary Surgery: No Gynecologic Surgery: No Insulin Pump: No Joint Replacement: No Neurologic Surgery: No Oral Surgery: No Pacemaker: No Thoracic Surgery: No Other Surgery: Yes (5 knee surguries, stomach cyst removed, wrist surgery) Social History Alcohol Use: No Tobacco Use: No Substance Use: No Allergies-Medications (Allergen,Severity, Reaction): Coded Allergies: Septra (Verified Allergy, Severe, "FEELS LIKE MY WHOLE BODY IS ON FIRE", ) Sulfa (Verified Allergy, Severe, "FEELS LIKE MY WHOLE BODY IS ON FIRE", ) Reported Meds & Prescriptions Reported Meds & Active Scripts Active Reported Spironolactone 25 Mg Tab 12.5 Mg PO DAILY Nitrostat SL (Nitroglycerin) 0.4 Mg Subl 0.4 Mg SL DIRECTED PRN 1 tablet under the tongue as needed for chest pain. Repeat every 5 minutes for a total of 3 DOSES or call 911 if NO relief. Lisinopril 20 Mg Tab 20 Mg PO BID Isosorbide Mononitrate ER (Isosorbide Mononitrate) 60 Mg Tab 60 Mg PO DAILY Plavix (Clopidogrel Bisulfate) 75 Mg Tab 75 Mg PO DAILY Coreg (Carvedilol) 25 Mg Tab 25 Mg PO BID Lipitor (Atorvastatin Calcium) 80 Mg Tab 80 Mg PO HS Xanax (Alprazolam) 0.5 Mg Tab 0.5 Mg PO BID PRN Aspirin Adult Low Strength (Aspirin) 81 Mg Tabdr 81 Mg PO DAILY Review of Systems Except as stated in HPI: all other systems reviewed are Neg General / Constitutional: No: Fever Eyes: No: Visual changes HENT: No: Headaches Cardiovascular: Positive: Chest Pain or Discomfort Respiratory: No: Shortness of Breath Gastrointestinal: No: Abdominal Pain Genitourinary: No: Dysuria Musculoskeletal: No: Pain Skin: No Rash Neurologic: No: Weakness Psychiatric: No: Depression Endocrine: No: Polydipsia Hematologic/Lymphatic: No: Easy Bruising Physical Exam Narrative General: The patient is well-developed well-nourished male in no acute distress. Head and Neck exam: Head is normocephalic atraumatic. Eyes: EOMI, pupils are equal round and reactive to light. Nose: Midline septum with pink mucous membranes Mouth: Dentition unremarkable. Moist mucus membranes. Posterior oropharynx is not erythematous. No tonsillar hypertrophy. Uvula midline. Airway patent. Neck: No palpable lymphadenopathy. No nuchal rigidity. No thyromegaly. Cardiovascular: Regular rate and rhythm without murmurs, gallops, or rubs. No pulse deficit to the extremities and simultaneous auscultation and palpation of his radial artery. Lungs: Clear to auscultation bilaterally. No wheezes, rhonchi, or rales. Abdomen: Soft, without tenderness to palpation in all 4 quadrants of the abdomen. No guarding, rebound, or rigidity. Normal bowel sounds are audible. No tenderness on palpation of McBurney's point. Extremities: No clubbing, cyanosis, or edema. 2+ pulses in all 4 extremities. No calf tenderness on palpation. Back: No costovertebral angle tenderness to palpation. Neurologic Exam: Grossly nonfocal. Skin Exam: No rash noted. Intact skin that is warm and dry. Data Data Last Documented VS Vital Signs Date Time Temp Pulse Resp B/P Pulse Ox O2 Delivery O2 Flow Rate FiO2 08/24/16 05:30 18 08/24/16 05:30 59 99 08/24/16 05:08 98.0 191/96 Orders Electrocardiogram (08/24/16 05:25) B-Type Natriuretic Peptide (08/24/16 05:25) Ckmb (Isoenzyme) Profile (08/24/16 05:25) Complete Blood Count With Diff (08/24/16 05:25) Comprehensive Metabolic Panel (08/24/16 05:25) Magnesium (Mg) (08/24/16 05:25) Prothrombin Time / Inr (Pt) (08/24/16 05:25) Act Partial Throm Time (Ptt) (08/24/16 05:25) Troponin I (08/24/16 05:25) Lipase (08/24/16 05:25) Chest, Single Ap (08/24/16 05:25) Ecg Monitoring (08/24/16 05:25) Bilateral Bp Monitoring (08/24/16 05:25) Iv Access Insert/Monitor (08/24/16 05:25) Oximetry (08/24/16 05:25) Oxygen Administration (08/24/16 05:25) Nitroglycerin 2% Oint (Nitroglycerin 2% (08/24/16 05:30) Sodium Chloride 0.9% Flush (Ns Flush) (08/24/16 05:30) Nitroglycerin Sl (Nitrostat Sl) (08/24/16 05:30) CKMB (08/24/16 05:30) CKMB% (08/24/16 05:30) Admit Order (Ed Use Only) (08/24/16 06:46) Heparin Infusion MARYLIN.Q1H (08/24/16 06:46) Heparin Inj (Heparin Inj) (08/24/16 07:00) Heparin-D5w Inj (Heparin-D5w Inj) (08/24/16 07:00) Act Partial Throm Time (Ptt) (08/24/16 06:46) Prothrombin Time / Inr (Pt) (08/24/16 06:46) Cbc No Diff, Includes Plts (08/24/16 06:46) Cbc No Diff, Includes Plts (08/27/16 06:00) Act Partial Throm Time (Ptt) (08/24/16 13:46) Occult Blood (Hemoccult) Stool (08/24/16 06:46) Labs Laboratory Tests Test 08/24/16 05:30 White Blood Count 7.3 TH/MM3 Red Blood Count 3.67 MIL/MM3 Hemoglobin 12.7 GM/DL Hematocrit 36.8 % Mean Corpuscular Volume 100.5 FL Mean Corpuscular Hemoglobin 34.5 PG Mean Corpuscular Hemoglobin 34.4 % Concent Red Cell Distribution Width 14.3 % Platelet Count 217 TH/MM3 Mean Platelet Volume 8.8 FL Neutrophils (%) (Auto) 43.2 % Lymphocytes (%) (Auto) 42.1 % Monocytes (%) (Auto) 8.0 % Eosinophils (%) (Auto) 6.4 % Basophils (%) (Auto) 0.3 % Neutrophils # (Auto) 3.2 TH/MM3 Lymphocytes # (Auto) 3.1 TH/MM3 Monocytes # (Auto) 0.6 TH/MM3 Eosinophils # (Auto) 0.5 TH/MM3 Basophils # (Auto) 0.0 TH/MM3 CBC Comment DIFF FINAL Differential Comment Prothrombin Time 10.2 SEC Prothromb Time International 0.9 RATIO Ratio Activated Partial 25.2 SEC Thromboplast Time Sodium Level 140 MEQ/L Potassium Level 4.4 MEQ/L Chloride Level 107 MEQ/L Carbon Dioxide Level 24.8 MEQ/L Anion Gap 8 MEQ/L Blood Urea Nitrogen 11 MG/DL Creatinine 1.33 MG/DL Estimat Glomerular Filtration 67 ML/MIN Rate Random Glucose 120 MG/DL Calcium Level 8.7 MG/DL Magnesium Level 1.8 MG/DL Total Bilirubin 1.0 MG/DL Aspartate Amino Transf 35 U/L (AST/SGOT) Alanine Aminotransferase 39 U/L (ALT/SGPT) Alkaline Phosphatase 66 U/L Total Creatine Kinase 281 U/L Creatine Kinase MB 2.2 NG/ML Troponin I 0.06 NG/ML B-Type Natriuretic Peptide 37 PG/ML Total Protein 8.0 GM/DL Albumin 3.8 GM/DL Lipase 267 U/L [facility] Medical Decision Making Medical Screen Exam Complete: Yes Emergency Medical Condition: Yes Medical Record Reviewed: Yes Interpretation(s) Last Impressions Chest X-Ray 08/24/16 0525 Signed Impressions: Service Date/Time: Wednesday, August 24, 2016 05:39 - CONCLUSION: No acute disease. No significant change has occurred. Raymond Berry MD Differential Diagnosis Non-STEMI, versus unstable angina, versus other acute coronary syndrome Narrative Course During the course of the patients emergency department visit, the patients history, examination, and differential diagnosis were reviewed with the patient. The patient had IV access obtained and blood work sent for analysis. The patient was placed on a appeals referee with oximetry and blood pressure monitoring. An EKG was done on arrival. The patient's EKG shows a sinus rhythm heart rate of 62, no acute ST segment elevation or depression, T waves are inverted in V1. The patient was initially provided nitroglycerin sublingual every 5 minutes 3 when necessary chest pain, nitroglycerin 1 inch the chest wall. The patient reports that he took an adult aspirin prior to arrival. The patients laboratory studies were reviewed and remarkable for a troponin that was elevated at 0.06. The patient was started on heparin per [place] protocol due to the possibility of the patient having a non-STEMI. Radiology studies were reviewed and remarkable for a chest x-ray that shows no acute abnormality. The patients results were discussed with the patient, including the plan of care. I explained that further testing and/ or monitoring is indicated based on the patients history, examination, and/ or laboratory findings. Therefore, I recommended admission for additional evaluation. The patient expressed understanding and was agreeable with this plan. The patient was admitted to the hospital in stable condition and sent to a bed under the care of the [facility] service. Physician Communication Physician Communication The patient's case was discussed with did agree to admit the patient to the [facility] service. Diagnosis Primary Impression: Troponin level elevated Additional Impression: Chest pain, rule out acute myocardial infarction Admitting Information Admitting Physician Requests: Admit Janna Butler MD Aug 24, 2016 06:57
[2016-08-24] MEDS ORDERED: HEPARIN SODIUM - IV 10,000 UNITS/10 ML VIAL IV ONE (07:00)
[2016-08-24] MEDS: HEPARIN-D5W INJ 250 ML IV SCH (07:24)
[2016-08-24] MEDS ORDERED: MORPHINE SULFATE 4 MG/ML INJ IV PRN (08:15)
[2016-08-24] MEDS ORDERED: ACETAMINOPHEN/HYDROcodone 325 MG/7.5 MG TAB PO PRN (08:15)
[2016-08-24] MEDS ORDERED: ACETAMINOPHEN 500 MG CPLT PO PRN (08:15)
[2016-08-24] MEDS ORDERED: NITROGLYCERIN 0.4 MG SL 25 TABS/BTL SL PRN (08:15)
[2016-08-24] MEDS ORDERED: SODIUM CHLORIDE 0.9% FLUSH 10 ML FLUSH IV FLUSH PRN (08:15)
[2016-08-24] MEDS ORDERED: ALPRAZolam 0.5 MG TAB PO PRN (08:30)
[2016-08-24] MEDS ORDERED: PILL SPLITTER OTHER PRN (08:30)
--- NOTE | 2016-08-24 08:50 | HHI.HP ---
HPI Service [facility] Primary Care Physician Carlos Cabezas M.D. Admission Diagnosis CP RO PR, intermediate troponin Chief Complaint: Chest pain Travel History International Travel<30 Days: No Contact w/Intl Traveler <30 Da: No Traveled to Known Affected Are: No History of Present Illness Mr. Guileln is a 56 y/o AAM with CAD/Hx of PR, Cardiomyopathy s/p AICD, HTN and hyperlipidemia who presented to the ED at [facility] on 08/24/16 with complaints of chest pain that he reports began sometime the evening prior around 7 or 8pm. The pain was constant full ache, however around 3:30 AM it became worse he drove himself to the emergency department. He reports that it resolves on his arrival in the parking lot and he attempted to go back home, but then it reoccurred. He states that this pain is the same discomfort he had last month prior to his stent being placed last month on 07/28/[address] Carbone with 75-80% proximal stenosis LAD and primary stenting was completed with a drug eluting stent. He cintia any associated N/V, diaphoresis, SOB or palpitations. Pt also has hx of as a history of sudden cardiac with defibrillator placement. He reports that he does have a history of acid reflux, however when he had his first myocardial infarction he had acid reflux was the only symptom. The patient denies any recent fevers, cough, congestion, neck pain, abdominal pain, vomiting, diarrhea, urinary symptoms, or neurologic symptoms. Review of Systems Constitutional: DENIES: Diaphoretic episodes, Fever, Chills Respiratory: DENIES: Cough, Shortness of breath Cardiovascular: COMPLAINS OF: Chest pain, DENIES: Palpitations, Dyspnea on Exertion, Lower Extremity Edema Gastrointestinal: DENIES: Nausea, Vomiting Musculoskeletal: DENIES: Back pain, Neck pain Integumentary: DENIES: Rash Neurologic: DENIES: Headache Psychiatric: DENIES: Confusion Past Family Social History Past Medical History CAD/PR HTN Ischemic cardiomyopathy with previous EF 20-25% and sudden cardiac in 2011 and V. Fib resuscitated s/p AICD EtOH use GERD Gout Hyperlipidemia Hx of tobacco use 2D echo (10/22/15) --> Mild LVH, estimated EF 55-60% Past Surgical History [facility] 07/28/[address] Carbone --> 75-80% proximal stenosis LAD and primary stenting was completed with a drug eluting stent [facility] 10/21/[address] Webb --> Subacute thrombosis of the LAD secondary to plaque rupture s/p stenting with FLORY to the mid-LAD. [facility] 08/01/[address] Webb --> Mild nonobstructive CAD, normal LV systolic function. Colon surgery for "cyst" Left hand surgery Multiple knee surgeries for ruptured patella Reported Medications Spironolactone 12.5 Mg PO DAILY Nitrostat SL 0.4 Mg SL DIRECTED PRN Lisinopril 20 Mg PO BID Isosorbide Mononitrate ER 60 Mg PO DAILY Plavix 75 Mg PO DAILY Coreg 25 Mg PO BID Lipitor 80 Mg PO HS Xanax 0.5 Mg PO BID PRN Aspirin 81 Mg PO DAILY Allergies: Coded Allergies: Septra (Verified Allergy, Severe, "FEELS LIKE MY WHOLE BODY IS ON FIRE", ) Sulfa (Verified Allergy, Severe, "FEELS LIKE MY WHOLE BODY IS ON FIRE", ) Family History Noncontributory Social History (+)Hx of tobacco use, smoked 1-1.5ppd from age [age] (+)Regular alcohol use Denies any illicit drug use Physical Exam Vital Signs Vital Signs Date Time Temp Pulse Resp B/P Pulse Ox O2 Delivery O2 Flow Rate FiO2 08/24/16 07:32 69 18 171/81 99 168/78 08/24/16 07:26 99 Nasal Cannula 2 08/24/16 05:30 18 08/24/16 05:30 59 18 99 08/24/16 05:13 18 08/24/16 05:08 98.0 64 16 191/96 99 Physical Exam GENERAL: This is a well-nourished, well-developed patient, in no apparent distress. HEENT: Atraumatic. Normocephalic. No temporal or scalp tenderness. No scleral icterus. Airway patent. NECK: Trachea midline, supple, nontender. CARDIO: Regular. RESP: CTA bilaterally. No wheezes, rales, or rhonchi. ABD: +BS, soft, non-tender, nondistended. EXT: Extremities without clubbing, cyanosis, or edema. NEURO: Awake and alert. Motor and sensory grossly within normal limits. Normal speech. Laboratory Laboratory Tests Test 08/24/16 05:30 White Blood Count 7.3 Red Blood Count 3.67 Hemoglobin 12.7 Hematocrit 36.8 Mean Corpuscular Volume 100.5 Mean Corpuscular Hemoglobin 34.5 Mean Corpuscular Hemoglobin 34.4 Concent Red Cell Distribution Width 14.3 Platelet Count 217 Mean Platelet Volume 8.8 Neutrophils (%) (Auto) 43.2 Lymphocytes (%) (Auto) 42.1 Monocytes (%) (Auto) 8.0 Eosinophils (%) (Auto) 6.4 Basophils (%) (Auto) 0.3 Neutrophils # (Auto) 3.2 Lymphocytes # (Auto) 3.1 Monocytes # (Auto) 0.6 Eosinophils # (Auto) 0.5 Basophils # (Auto) 0.0 CBC Comment DIFF FINAL Differential Comment Prothrombin Time 10.2 Prothromb Time International 0.9 Ratio Activated Partial 25.2 Thromboplast Time Sodium Level 140 Potassium Level 4.4 Chloride Level 107 Carbon Dioxide Level 24.8 Anion Gap 8 Blood Urea Nitrogen 11 Creatinine 1.33 Estimat Glomerular Filtration 67 Rate Random Glucose 120 Calcium Level 8.7 Magnesium Level 1.8 Total Bilirubin 1.0 Aspartate Amino Transf 35 (AST/SGOT) Alanine Aminotransferase 39 (ALT/SGPT) Alkaline Phosphatase 66 Total Creatine Kinase 281 Creatine Kinase MB 2.2 Troponin I 0.06 B-Type Natriuretic Peptide 37 Total Protein 8.0 Albumin 3.8 Lipase 267 Result Diagram: 08/24/1652908/24/16529 Imaging Last Impressions Chest X-Ray 08/24/16524 Signed Impressions: Service Date/Time: Wednesday, August 24, 2016 05:39 - CONCLUSION: No acute disease. No significant change has occurred. Raymond Berry MD Septic Shock Reassessment Heart: Regular rate and rhythm Lungs: Clear Skin: Warm Peripheral Pulses: Bounding Right Radial Bounding Left Radial Bounding Right Popliteal Bounding Left Popliteal Bounding Right Dorsalis Pedis Bounding Left Dorsalis Pedis Bounding Right Posterior Tibial Bounding Left Posterior Tibial Assessment and Plan Problem List: (1) Chest pain, rule out acute myocardial infarction Status: Acute Plan: - Pt admitted with chest pain that began yesterday evening and remained fairly constant for several hours but worsened around 3:30AM and this prompted him to come to the ED. He felt that this pain is very similar to pain he had with his previous PR's - He recently had cardiac cath with Dr. Carbone on 07/28/2016 which noted 75-80 % proximal stenosis LAD and primary stenting was completed with a drug eluting stent. - Troponin I of 0.06 in the ED and pt was admitted for repeat Troponin and Cardiology evaluation - Pt was started on Heparin gtt in the ED - Pt is on Plavix/ASA/BB/WENDI/Statin/Imdur and these will be continued - Cardiology consulted - Await repeat troponin and EKGs - Nitro PRN - Pain meds PRN - Supportive care - DVT prophylaxis (2) CAD (coronary artery disease) Status: Chronic Plan: - See above. 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 Assessment and plan formulated with Belem Carreno PA-C. I agree with the above. Physician Certification 2 Midnight Certification Type: Admission for Inpatient Services Order for Inpatient Services The services are ordered in accordance with Medicare regulations or non- Medicare payer requirements, as applicable. In the case of services not specified as inpatient-only, they are appropriately provided as inpatient services in accordance with the 2-midnight benchmark. Estimated LOS (days): 2 2 days is the estimated time the patient will need to remain in the hospital, assuming treatment plan goals are met and no additional complications. Post-Hospital Plan: Belem Pacheco Aug 24, 2016 08:49 Bob Sierra DO September 04, 2016 13:38
[2016-08-24] MEDS: SODIUM CHLORIDE 0.9% FLUSH 10 ML FLUSH IV FLUSH SCH ×2 (09:00→20:41)
[2016-08-24] MEDS: ASPIRIN EC 81 MG TABEC PO SCH (10:14)
[2016-08-24] MEDS: PANTOPRAZOLE SOD 40 MG DELAYED RELEASE TAB PO SCH (10:14)
[2016-08-24] MEDS: CARVEDILOL 12.5 MG TAB PO SCH ×2 (10:14→20:41)
[2016-08-24] MEDS: CLOPIDOGREL 75 MG TAB PO SCH (10:15)
[2016-08-24] MEDS: LISINOPRIL 20 MG TAB PO SCH ×2 (10:16→20:41)
[2016-08-24] MEDS: ISOSORBIDE MONONITRATE 60 MG TAB PO SCH (11:08)
[2016-08-24] MEDS: SPIRONOLACTONE 25 MG TAB PO SCH (11:09)
[2016-08-24 11:44] LABS: HEMATOCRIT 35.5 % (39.0-51.0); MEAN CELL VOLUME 100.1 FL (80.0-100.0); MEAN CORPUSCULAR HEMOGLOBIN 33.9 PG (27.0-34.0); MEAN CORPUSCULAR HGB CONC 33.9 % (32.0-36.0); PLATELET COUNT 213 TH/MM3 (150-450); RED BLOOD COUNT 3.55 MIL/MM3 (4.50-5.90); RED CELL DISTRIBUTION WIDTH 14.2 % (11.6-17.2); REVIEW FLAG FINAL; WHITE BLOOD COUNT 6.7 TH/MM3 (4.0-11.0)
[2016-08-24 12:00] LABS: APTT (PATIENT) 52.2 SEC (24.3-30.1); PROTHROMBIN TIME - PATIENT 10.7 SEC (9.8-11.6)
[2016-08-24] MEDS ORDERED: hydrALAZINE HCL 20 MG/ML VIAL IV PUSH PRN (15:00)
--- NOTE | 2016-08-24 16:44 | MB ---
cc: ELVA RUTH MD DATE OF CONSULTATION 08/24/2016 INDICATION [id number] NC. HISTORY OF PRESENT ILLNESS He is a very nice 56-year-old gentleman. He has history of known heart disease, prior myocardial infarction and cardiomyopathy status post AICD. Also has hypertension, hyperlipidemia. He follows with Dr. Carbone in the outpatient setting. He was recently admitted back in the end of July with chest pain symptoms and elevated troponin. He underwent cardiac catheterization at that time and showed a proximal LAD stenosis and underwent primary stenting with drug-eluting stent. He had prior intervention to the mid left anterior descending coronary by myself back in 2015. He was in his usual state of health up until last evening. Around 8 p.m. he developed a substernal chest pain. It was similar in character to his prior episode. Does not have any sublingual nitro at home. He took Maru Kimberly hoping that it was something GI but it continued to progress. Finally came into the emergency department with the initial troponin 0.06. He was admitted to [facility] and his second troponin came back in 1.79. He is currently chest painfree. Electrocardiogram was unremarkable. PAST MEDICAL HISTORY 1. History of coronary artery disease. 2. Myocardial infarction. 3. Hypertension. 4. Ischemic cardiomyopathy with prior in 2011 and ejection fraction of 25% but most recent echocardiogram in October 2015 showed ejection fraction of 55%. 5. Prior gastroesophageal reflux disease. 6. Gout. 7. Hyperlipidemia. 8. Tobacco abuse. 9. He underwent initial heart catheterization back in August 01, 2015 which showed mild disease. 10.In October of 2015 he had subacute thrombosis of the LAD and drug-eluting stent placed. 11. Then most recently in July 28, 2016 he had placement of drug-eluting stent to the proximal left anterior descending coronary artery. MEDICATIONS 1. Spironolactone. 2. Lisinopril. 3. Isosorbide. 4. Plavix. 5. Coreg. 6. Lipitor. 7. Xanax. 8. Aspirin. ALLERGIES SEPTRA, SULFA. FAMILY HISTORY He denies any family history of disease, early coronary disease, sudden cardiac . SOCIAL HISTORY Reports tobacco use. Smoked about a pack to a pack and a half a day until age 51. He does report regular alcohol use. Denies any drug use. REVIEW OF SYSTEMS A 12 point review of systems was performed and negative unless otherwise noted is present illness. PHYSICAL EXAMINATION VITAL SIGNS: Temperature 98, pulse 70, blood pressures 162/85 mmHg. GENERAL: Alert and oriented times three. In no acute distress. HEENT: Exam shows pupils reactive to light and accommodation. Extraocular muscles are intact. NECK: No elevation in jugular venous distention. No thyromegaly or lymphadenopathy. No carotid bruits. LUNGS: Clear to auscultation bilaterally. CARDIOVASCULAR: Regular rate and rhythm without murmurs, rubs or gallops. ABDOMEN: Exam is nontender, nondistended. Good bowel sounds. No hepatosplenomegaly. EXTREMITIES: Show no clubbing, cyanosis or edema. Good peripheral pulses. NEUROLOGIC: Cranial nerves intact. Motor and sensory grossly intact. LABORATORY DATA WBC 6.7, hemoglobin is 12, platelet count 213. INR is 1.0. Sodium 140, potassium 4.4, chloride 107, BUN is 11, creatinine is 1.33. Troponin 0.06 up to 1.64 and then up to 1.79. Electrocardiogram sinus rhythm, no ischemic changes. ASSESSMENT 1. Non-ST elevation myocardial infarction. 2. History of prior cardiomyopathy which is now resolved status post defibrillator. 3. History of coronary artery disease prior percutaneous intervention, most recent in July 2016. 4. Hyperlipidemia. 5. Hypertension. PLAN The patient's symptoms are suggestive he now has significant bump in his troponin, all consistent with acute coronary syndrome. His electrocardiogram looks unremarkable which would suggest against an acute stent thrombosis. We will send a PTY12 assay just to ensure the does not have any platelet resistance to Plavix, although he tolerated Plavix in the past without an acute event. He has been compliant with his medication. He had a moderate circumflex stenosis, estimated severity approximately 50%. There may have been some rapid progression there. And likely developed in-stent restenosis in such a short period of time. We will plan for cardiac catheterization tomorrow morning. He is on heparin drip now. Will apply nitro paste. He will also need aggressive blood pressure control. He is on carvedilol and we will add amlodipine. MD VALENTÍN Claros/BELKIS /2:44 PM /4:22 PM
--- NOTE | 2016-08-24 17:06 | EKG ---
Date Performed: 08/24/2016 Time Performed: 05:30:05 PTAGE: 56 years EKG: Sinus rhythm SEPTAL MYOCARDIAL INFARCTION ABNORMAL ECG Considered intraseptal NV age undetermined PREVIOUS TRACING : 07/28/2016 09.36 DOCTOR: Abram Davidson Interpretating Date/Time 08/24/2016 17:05:50
[2016-08-24 17:26] LABS: APTT (PATIENT) 38.8 SEC (24.3-30.1)
[2016-08-24] MEDS: amLODIPine BESYLATE 5 MG TAB PO SCH (17:34)
[2016-08-24] MEDS ORDERED: ATORVASTATIN 80 MG TAB PO SCH (21:00)
[2016-08-24 23:32] LABS: APTT (PATIENT) 41.5 SEC (24.3-30.1)
[2016-08-25] MEDS: HEPARIN-D5W INJ 250 ML IV SCH (03:16)
[2016-08-25 04:28] VITALS: BP 134/64; PULSE 76; RESP 16; TEMP 97.6; O2SAT 98
[2016-08-25 04:59] LABS: APTT (PATIENT) 45.6 SEC (24.3-30.1)
[2016-08-25 05:28] LABS: HDL CHOLESTEROL 34.4 MG/DL (40.0-60.0)
[2016-08-25] MEDS ORDERED: SODIUM CHLOR 0.9% 1000 ML INJ 1,000 ML IV SCH (07:26)
--- NOTE | 2016-08-25 07:28 | PD.CARD.PN ---
Subjective Subjective Remarks denies chest pain Objective Vital Signs / I&O Vital Signs Date Time Temp Pulse Resp B/P Pulse Ox O2 Delivery O2 Flow Rate FiO2 08/25/16 04:28 97.6 76 16 134/64 98 08/24/16 23:20 98.3 73 16 127/61 95 08/24/16 21:07 98.2 81 16 142/69 97 08/24/16 20:04 70 08/24/16 18:59 76 08/24/16 16:00 97.6 71 16 129/55 97 08/24/16 14:30 98.1 65 16 122/73 97 08/24/16 11:29 70 16 162/85 99 08/24/16 07:32 69 18 171/81 99 168/78 08/24/16 07:26 99 Nasal Cannula 2 I/O 08/24/16 08/24/16 08/24/16 08/25/16 08/25/16 08/25/16 07:00 15:00 23:00 07:00 15:00 23:00 Intake Total 360 ml 914 ml 0 ml Output Total 200 ml 325 ml Balance 160 ml 914 ml -325 ml Intake Oral 360 ml 720 ml 0 ml IV Total 194 ml Output Urine Total 200 ml 325 ml # Voids 4 # Bowel Movements 0 1 0 Physical Exam GENERAL: Well-nourished, well-developed patient in no apparent distress. NECK: No JVD. No carotid bruit. CARDIOVASCULAR: Regular rate and rhythm. S1/S2 no murmur, rub, or gallop. RESPIRATORY: No accessory muscle use. Clear to auscultation. Breath sounds equal bilaterally. GASTROINTESTINAL: Abdomen soft, non-tender, nondistended. MUSCULOSKELETAL: Extremities without clubbing, cyanosis, or edema. Laboratory Laboratory Tests Test 08/24/16 08/24/16 08/24/16 08/24/16 11:30 12:35 16:37 22:49 White Blood Count 6.7 TH/MM3 Red Blood Count 3.55 MIL/MM3 Hemoglobin 12.0 GM/DL Hematocrit 35.5 % Mean Corpuscular Volume 100.1 FL Mean Corpuscular Hemoglobin 33.9 PG Mean Corpuscular Hemoglobin 33.9 % Concent Red Cell Distribution Width 14.2 % Platelet Count 213 TH/MM3 Mean Platelet Volume 9.3 FL Prothrombin Time 10.7 SEC Prothromb Time International 1.0 RATIO Ratio Activated Partial 52.2 SEC 38.8 SEC 41.5 SEC Thromboplast Time Total Creatine Kinase 267 U/L 259 U/L Troponin I 1.64 NG/ML 1.79 NG/ML Test 08/25/16 04:38 Activated Partial 45.6 SEC Thromboplast Time Triglycerides Level 234 MG/DL Cholesterol Level 98 MG/DL LDL Cholesterol 17 MG/DL HDL Cholesterol 34.4 MG/DL Cholesterol/HDL Ratio 2.84 RATIO Assessment and Plan Problem List: (1) STEMI (ST elevation myocardial infarction) (2) CAD (coronary artery disease) (3) HTN (hypertension) Assessment and Plan plan is for coronary angiogram this morning at 0945. His blood pressure and LDL cholesterol are well controlled For his renal dysfunction we will prehydrate Jeremy Frank Aug 25, 2016 07:28
[2016-08-25] MEDS ORDERED: MIDAZOLAM HCL 2 MG/2 ML VIAL IV SCH (07:30)
[2016-08-25 08:00] VITALS: BP 128/60; PULSE 62; RESP 16; TEMP 98; O2SAT 98
[2016-08-25] MEDS: SODIUM CHLORIDE 0.9% FLUSH 10 ML FLUSH IV FLUSH SCH (09:00)
[2016-08-25] MEDS: ISOSORBIDE MONONITRATE 60 MG TAB PO SCH (09:02)
[2016-08-25] MEDS: CARVEDILOL 12.5 MG TAB PO SCH (09:02)
[2016-08-25] MEDS: LISINOPRIL 20 MG TAB PO SCH (09:02)
[2016-08-25] MEDS: CLOPIDOGREL 75 MG TAB PO SCH (09:02)
[2016-08-25] MEDS: ASPIRIN EC 81 MG TABEC PO SCH (09:02)
[2016-08-25] MEDS: amLODIPine BESYLATE 5 MG TAB PO SCH (09:02)
[2016-08-25] MEDS: PANTOPRAZOLE SOD 40 MG DELAYED RELEASE TAB PO SCH (09:02)
--- NOTE | 2016-08-25 09:02 | EKG ---
Date Performed: 08/24/2016 Time Performed: 14:26:28 PTAGE: 56 years EKG: Sinus arrhythmia. Poor R wave progression - probable normal variant Borderline ECG NO PREVIOUS TRACING DOCTOR: Terry Casanova Interpretating Date/Time 08/25/2016 09:01:01
[2016-08-25] MEDS: SPIRONOLACTONE 25 MG TAB PO SCH (09:03)
[2016-08-25] MEDS ORDERED: HEPARIN-NS/PF INJ 500 ML ONE (09:05)
[2016-08-25] MEDS ORDERED: MIDAZOLAM HCL 2 MG/2 ML VIAL ONE ×2 (09:05→09:26)
[2016-08-25] MEDS ORDERED: HEPARIN SODIUM - IV 10,000 UNITS/10 ML VIAL ONE (09:06)
[2016-08-25] MEDS ORDERED: ONDANSETRON HCL 4 MG/2 ML VIAL IV PRN (10:00)
[2016-08-25] MEDS ORDERED: BACITRACIN OINT 0.9 GM PKT TOP ONE (10:00)
[2016-08-25] MEDS ORDERED: SODIUM CHLOR 0.9% 250 ML INJ 250 ML IV PRN (10:00)
[2016-08-25] MEDS ORDERED: LIDOCAINE HCL 1% 50 ML VIAL INFIL PRN (10:00)
[2016-08-25] MEDS ORDERED: ATROPINE SULFATE 1 MG/ML VIAL IV PRN (10:00)
[2016-08-25] MEDS ORDERED: MISC INFORMATION XX ONE (10:00)
[2016-08-25] MEDS ORDERED: ISOS60TA PO (10:17)
--- NOTE | 2016-08-25 10:19 | HHI.DCPOC ---
Discharge Care Plan Diagnosis: (1) CAD (coronary artery disease) (2) Chest pain, rule out acute myocardial infarction (3) Hx of cardiomyopathy (4) GERD (gastroesophageal reflux disease) (5) HTN (hypertension) (6) Troponin level elevated Goals to Promote Your Health * To prevent worsening of your condition and complications * To maintain your health at the optimal level Directions to Meet Your Goals Take your medications as prescribed Follow your dietary instruction Follow activity as directed Keep your appointments as scheduled Take your immunizations and boosters as scheduled If your symptoms worsen call your PCP, if no PCP go to Urgent Care Center or Emergency Room Smoking is Dangerous to Your Health. Avoid second hand smoke Call the 24-hour hour crisis hotline for domestic abuse at [place] Carreno Aug 25, 2016 10:19 Bob Sierra DO September 04, 2016 13:38
--- NOTE | 2016-08-25 11:00 | MA ---
cc: ELVA RUTH DATE 08/25/2016 INDICATION [id number] OK. PROCEDURE PERFORMED 1. Fluoroscopy with interpretation 2. Coronary angiography METHOD The risks, benefits and alternatives discussed with the patient. The patient understood and consented to the procedure. The patient brought into the catheterization lab, placed on the catheterization table. The right groin was prepped and draped in a sterile fashion. The right groin was anesthetized with 2% lidocaine. The right common femoral was cannulated. A 6-Czech, 7 cm sheath was placed without difficulty. CORONARY ANGIOGRAPHY 1. Left main coronary angiographically normal. 2. Left anterior descending coronary has a stent present in the proximal and extending in the mid segment which is widely patent. There is a small diagonal branch in the mid segment that has an ostial 80% stenosis. The remainder of the vessel has minor luminal irregularities. 3. The circumflex was a dominant vessel giving rise to the posterior descending branch. The circumflex has minor luminal irregularities. The area of prior stenosis now appears to be resolved likely suggestive of arterial spasm. 4. The right coronary is a nondominant vessel and has minor luminal irregularities. CONCLUSION Branch vessel coronary disease with widely patent recent left anterior descending coronary stent. PLAN The patient will be monitored closely for any post procedural complications. Closure device Angio-Seal was deployed with good hemostasis. We will increase his isosorbide to 60 mg twice a day. Anticipate discharge later today. MD VALENTÍN Claros/COLUMBA /10:01 AM /10:55 AM KAROLINA
--- NOTE | 2016-08-25 11:48 | HHI.PR ---
Subjective Remarks Pt without any complaints. He had [facility] today with noted small vessel disease and widely patent stent. Cardiology has cleared for discharge with continued medical management. Objective Vitals Vital Signs Date Time Temp Pulse Resp B/P Pulse Ox O2 Delivery O2 Flow Rate FiO2 08/25/16 10:00 96 Room Air 08/25/16 08:00 98.0 62 16 128/60 98 08/25/16 04:28 97.6 76 16 134/64 98 08/24/16 23:20 98.3 73 16 127/61 95 08/24/16 21:07 98.2 81 16 142/69 97 08/24/16 20:04 70 08/24/16 18:59 76 08/24/16 16:00 97.6 71 16 129/55 97 08/24/16 14:30 98.1 65 16 122/73 97 08/24/16 08/24/16 08/25/16 15:00 23:00 07:00 Intake Total 360 ml 914 ml 0 ml Output Total 200 ml 325 ml Balance 160 ml 914 ml -325 ml Intake Oral 360 ml 720 ml 0 ml IV Total 194 ml Output Urine Total 200 ml 325 ml # Voids 4 # Bowel Movements 0 1 0 Result Diagram: 08/24/16 1130 08/24/16 0530 Other Results Laboratory Tests Test 08/24/16 08/24/16 08/24/16 08/24/16 05:30 11:30 12:35 16:37 White Blood Count 7.3 TH/MM3 6.7 TH/MM3 Red Blood Count 3.67 MIL/MM3 3.55 MIL/MM3 Hemoglobin 12.7 GM/DL 12.0 GM/DL Hematocrit 36.8 % 35.5 % Mean Corpuscular Volume 100.5 FL 100.1 FL Mean Corpuscular Hemoglobin 34.5 PG 33.9 PG Mean Corpuscular Hemoglobin 34.4 % 33.9 % Concent Red Cell Distribution Width 14.3 % 14.2 % Platelet Count 217 TH/MM3 213 TH/MM3 Mean Platelet Volume 8.8 FL 9.3 FL Neutrophils (%) (Auto) 43.2 % Lymphocytes (%) (Auto) 42.1 % Monocytes (%) (Auto) 8.0 % Eosinophils (%) (Auto) 6.4 % Basophils (%) (Auto) 0.3 % Neutrophils # (Auto) 3.2 TH/MM3 Lymphocytes # (Auto) 3.1 TH/MM3 Monocytes # (Auto) 0.6 TH/MM3 Eosinophils # (Auto) 0.5 TH/MM3 Basophils # (Auto) 0.0 TH/MM3 CBC Comment DIFF FINAL Differential Comment Prothrombin Time 10.2 SEC 10.7 SEC Prothromb Time International 0.9 RATIO 1.0 RATIO Ratio Activated Partial 25.2 SEC 52.2 SEC 38.8 SEC Thromboplast Time Sodium Level 140 MEQ/L Potassium Level 4.4 MEQ/L Chloride Level 107 MEQ/L Carbon Dioxide Level 24.8 MEQ/L Anion Gap 8 MEQ/L Blood Urea Nitrogen 11 MG/DL Creatinine 1.33 MG/DL Estimat Glomerular Filtration 67 ML/MIN Rate Random Glucose 120 MG/DL Calcium Level 8.7 MG/DL Magnesium Level 1.8 MG/DL Total Bilirubin 1.0 MG/DL Aspartate Amino Transf 35 U/L (AST/SGOT) Alanine Aminotransferase 39 U/L (ALT/SGPT) Alkaline Phosphatase 66 U/L Total Creatine Kinase 281 U/L 267 U/L 259 U/L Creatine Kinase MB 2.2 NG/ML Troponin I 0.06 NG/ML 1.64 NG/ML 1.79 NG/ML B-Type Natriuretic Peptide 37 PG/ML Total Protein 8.0 GM/DL Albumin 3.8 GM/DL Lipase 267 U/L Test 08/24/16 08/25/16 22:49 04:38 Activated Partial 41.5 SEC 45.6 SEC Thromboplast Time Triglycerides Level 234 MG/DL Cholesterol Level 98 MG/DL LDL Cholesterol 17 MG/DL HDL Cholesterol 34.4 MG/DL Cholesterol/HDL Ratio 2.84 RATIO Imaging Last Impressions Chest X-Ray 08/24/16 0525 Signed Impressions: Service Date/Time: Wednesday, August 24, 2016 05:39 - CONCLUSION: No acute disease. No significant change has occurred. Raymond Berry MD Objective Remarks General: NAD, AAOx3 Chest: CTA Cardiac: Regular Abd: +BS, soft ND/NT Ext: No edema A/P Problem List: (1) Chest pain, rule out acute myocardial infarction Status: Acute Plan: - Pt admitted with chest pain that began on the evening of 08/23 and remained fairly constant for several hours but worsened around 3:30AM and this prompted him to come to the ED. He felt that this pain is very similar to pain he had with his previous AR's - He recently had cardiac cath with Dr. Carbone on 07/28/2016 which noted 75-80 % proximal stenosis LAD and primary stenting was completed with a drug eluting stent. - Troponin I of 0.06 --> 1.64 --> 1.79 - Pt was started on Heparin gtt in the ED - Cardiology following. - Pt underwent LHC (08/25) --> Branch vessel coronary disease with widely patent recent left anterior descending coronary stent. - Pt is on Plavix/ASA/BB/WENDI/Statin - Cardiology recommending increase Imdur to 60mg po BID - Nitro PRN - Pain meds PRN - Pt planned for discharge later this afternoon - He will need to followup with Dr. Webb or Dr. Carbone in 1-2 weeks - Pt will need to followup with his PCP, Dr. Cabezas, in 1 week. (2) CAD (coronary artery disease) Status: Chronic Plan: - See above. 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 Assessment and plan formulated with Belem Carreno PA-C. I agree with the above. Belem Carreno Aug 25, 2016 11:48 Bob Sierra DO September 04, 2016 13:37
[2016-08-25 12:00] VITALS: BP 99/57; PULSE 62; RESP 16; TEMP 97.4; O2SAT 97
[2016-08-25 12:39] VITALS: BP 99/57; PULSE 62; RESP 16; TEMP 97.4; O2SAT 97
--- NOTE | 2016-08-25 13:03 | EKG ---
Date Performed: 08/24/2016 Time Performed: 11:39:50 PTAGE: 56 years EKG: SINUS BRADYCARDIA BORDERLINE ECG PREVIOUS TRACING : 08/24/2016 05.30 No significant change from previous tracing noted. DOCTOR: Terry Casanova Interpretating Date/Time 08/25/2016 13:02:13
[2016-08-25 15:00] VITALS: BP 122/69; PULSE 61; RESP 16; TEMP 98; O2SAT 97
[2016-08-25] MEDS ORDERED: ISOSORBIDE MONONITRATE 60 MG TAB PO SCH (21:00)
== END 2016-08-25 15:46 | disposition home or self-care (01) | DRG 287 ==
LOC: NEPC 05:07 → NEDA 06:50 → N04A 12:56
PROVIDERS: ADMIT Hospitalist; ATTEND Hospitalist
PROC: B2111ZZ Fluoroscopy of Multiple Coronary Arteries using Low Osmolar Contrast (ICD-10-PCS; principal; 2016-08-25 09:45)
DX: R07.9 Chest pain, unspecified (principal); I10 Essential (primary) hypertension; I25.2 Old myocardial infarction; I25.10 Atherosclerotic heart disease of native coronary artery without angina pectoris; Z95.5 Presence of coronary angioplasty implant and graft; I25.5 Ischemic cardiomyopathy; Z95.810 Presence of automatic (implantable) cardiac defibrillator; N28.9 Disorder of kidney and ureter, unspecified; K21.9 Gastro-esophageal reflux disease without esophagitis; E78.5 Hyperlipidemia, unspecified; Z87.891 Personal history of nicotine dependence; Z79.82 Long term (current) use of aspirin
CPT/HCPCS: 71010; 80053; 80061; 82550; 82552; 82948; 83690; 83735; 83880; 84484; 85025; 85027; 85610; 85730; 93005; 93454; C1725; C1757; C1760; C1769; C1874; C1887; C1893; G0269; J1644; J2250; J3010; J7030